=== PATIENT | female | born 1980 | race Caucasian/White ===

== ENCOUNTER 2017-07-28 19:04 | Emergency (ER) | payer OTHER ==
[~2017-07-28] VITALS: Ht 165.1 cm; Wt 57.2 kg
[2017-07-28 19:09] VITALS: TEMP 36.8; Ht 165.1 cm; Wt 57.2 kg
[2017-07-28] MEDS ORDERED: TOPI50TA16 PO (20:43)
[2017-07-28] MEDS ORDERED: CHOL1000 PO (20:43)
[2017-07-28] MEDS ORDERED: LACO100T PO ×2 (20:43)
[2017-07-28] MEDS ORDERED: MULT-513 PO (20:43)
[2017-07-28] MEDS ORDERED: LACO50TA PO (20:43)
[2017-07-28] MEDS ORDERED: TOPI100T20 PO ×2 (20:43)
--- NOTE | 2017-07-28 21:01 | EMERGENCY ROOM VISIT NOTE ---
ED Visit Note First contact with patient: 20:35 CHIEF COMPLAINT: Tick in the left arm HISTORY OF PRESENT ILLNESS: This 37-year-old female sent to the emergency department with concern for a tick bite. She states that she noticed a tick embedded in her left upper arm yesterday afternoon, she had a friend attempt to remove the tick, but states that the head of the tick is still lodged in her arm. Was able to remove some of it but not all. It has been on for about 24 hours. Tetanus is up-to-date. REVIEW OF SYSTEMS: Head: No headache, injury or neck pain. A Neck: No pain , stiffness, or swelling. Neurological: No headache, new changes in mental status, vertigo, focal weakness, numbness. Gastrointestinal: No abdominal pain , blood in stools, diarrhea, loss of appetite, nausea, or vomiting. General: No fever or chills, fatigue, loss of appetite, or significant recent weight gain or loss. PMH: The patient is healthy; there is no significant medical or surgical history. SOCIAL HISTORY: Patient lives at home. PHYSICAL EXAM: Vital Signs: Reviewed Nurse's notes. The patient is alert and oriented, in no acute distress. Pleasant and cooperative. The mouth parts of a tick are embedded in the left lateral upper arm. There is a small zone of inflammation around it. There is no fluctuance, tenderness, or drainage. EMERGENCY DEPARTMENT COURSE: Verbal consent was obtained from the patient to perform the procedure. After chlorhexidine scrub cleansing and using sterile technique, the tick parts were removed with forceps after a tiny incision with a number 15 scalpel blade. The area was again cleansed with chlorhexidine. Bacitracin and a band-aid were put on the wound. The patient tolerated the procedure well. I instructed her on signs/symptoms to monitor for, and encouraged her to follow up with her PCP, she verbalized understanding. Patient was discharged home in stable condition and ambulatory. Current/Historical Medications Scheduled Cholecalciferol (Vitamin D3), 1 TAB PO DAILY Lacosamide (Vimpat), 100 MG PO QAM Lacosamide (Vimpat), 50 MG PO BID Lacosamide (Vimpat), 200 MG PO QPM Multivitamins/Minerals (Mvi With Minerals), 1 TAB PO DAILY Topiramate (Topamax), 100 MG PO QAM Topiramate (Topamax), 50 MG PO BID Topiramate (Topamax), 200 MG PO QPM Allergies Coded Allergies: Gadobutrol (Verified Allergy, Severe, HEART PAIN, 07/28/17) Lamotrigine (Verified Allergy, Intermediate, RASH, 07/28/17) Uncoded Allergies: SULFA (Allergy, Intermediate, hives, 07/28/17) Vital Signs Date Time Temp Pulse Resp B/P (MAP) Pulse Ox O2 Delivery O2 Flow Rate FiO2 07/28/17 21:09 68 16 134/76 98 Room Air 07/28/17 19:09 36.8 71 16 114/79 98 Room Air Departure Information Impression Primary Impression: Tick bite Dispostion Home / Self-Care Condition GOOD Referrals Ruth Poole D.O. (PCP) Patient Instructions ED Bite Tick No Abx Tx, [facility] Additional Instructions Watch the area for signs of infection, like increasing pain, redness, swelling, pus drainage, or if you develop fevers/chills. Clean the area with warm soapy water, pat dry and apply antibiotic ointment and a Band-Aid for the next 2 days. Follow-up with her PCP as needed, or for any signs of infection. Problem Qualifiers Primary Impression: Tick bite Encounter type: initial encounter Qualified Codes: W57.XXXA - Bitten or stung by nonvenomous insect and other nonvenomous arthropods, initial encounter
[2017-07-28 21:09] VITALS: BP 134/76; PULSE 68; O2SAT 98
== END 2017-07-28 21:20 | disposition home or self-care (01) ==
LOC: C.EDB 19:06 → C.EDD 21:20
DX: S40.862A Insect bite (nonvenomous) of left upper arm, initial encounter (principal); W57.XXXA Bitten or stung by nonvenomous insect and other nonvenomous arthropods, initial encounter; Z79.899 Other long term (current) drug therapy; Z88.8 Allergy status to other drugs, medicaments and biological substances

== ENCOUNTER 2017-11-08 10:52 | Emergency (ER) | payer OTHER ==
[~2017-11-08] VITALS: Ht 175.3 cm; Wt 36.9 kg
[~2017-11-08 10:52] MED LIST: CHOL1000 PO; LACO100T PO; LACO50TA PO; MULT-513 PO; TOPI100T20 PO; TOPI50TA16 PO
[2017-11-08 11:03] VITALS: TEMP 36.9; Ht 175.3 cm; Wt 36.9 kg
[2017-11-08] MEDS ORDERED: LACO150T PO (11:18)
[2017-11-08] MEDS ORDERED: ATV/1 PO (11:18)
[2017-11-08] MEDS ORDERED: DROS3TAB PO (11:18)
[2017-11-08] MEDS ORDERED: ONFI PO ×2 (11:18)
[2017-11-08] MEDS ORDERED: CALC600T9 PO (11:18)
[2017-11-08] MEDS ORDERED: CHOL20009 PO (11:18)
[2017-11-08 12:50] VITALS: BP 103/66; PULSE 67; O2SAT 99
--- NOTE | 2017-11-08 13:06 | EMERGENCY ROOM VISIT NOTE ---
History First contact with patient: 11:42 Chief Complaint: SEIZURE Stated Complaint: SEIZURE Nursing Triage Summary: Pt presents from home via ALS for a seizure. Pt has long standing hx of seizures since she was 15, but verbalizes no one believed her until she was 29 years old when she finally started being medicated for them. Pt verbalizes she has seizures daily and is following with the [facility] for this. Takes Vipmat and Topamax daily, has not missed any doses. Pt verbalizes the reason she came to ED today is because this seizure was worse than any that she has had in a long time. Pt is alert and oriented upon arrival, no incontinence during seizure, only complaint is left arm pain, feeling cold, and has a headache, all which she verbalizes are normal post ictal. History of Present Illness The patient is a 37 year old female who presents to the Emergency Room via ALS with complaints of having a seizure. The patient states that she has a long- standing history of seizures. Over the past 6 months she has been getting seizures on a daily basis. She was living in [facility] and was treated by neurology there. She moved to the area 5 months ago. She went and saw [facility], Dr. Eliseo Olguin last week. He did adjust some of her medications. She has a follow-up appointment scheduled on November 25 for a video EEG were she will be admitted for one week. The patient states the only reason she came in today was that with her seizure she had at most a 5 minute time where she was paralyzed. The patient states normally she gets left arm paralysis after her seizures which is normal. She does have that today. She also gets a headache post ictal which she currently rates at a 1 out of 10. The patient was alone when she had a seizure but she called her and he stated she did not talk for 40 seconds and then she was able to talk and informed him of her paralysis. Seizure started at approximately 949. She states it only lasted a few minutes. The patient currently is just tired. She has been taking all her medicines and has not missed any dosing. Review of Systems 10 system review was performed and was negative unless stated otherwise history of present illness. Past Medical/Surgical History Seizures, tachycardia Social History Smoking Status: Never Smoker Alcohol Use: none Drug Use: none Marital Status: Housing Status: lives with family Current/Historical Medications Scheduled Calcium Carbonate-Vitamin D (Calcium + D), 1 TAB PO DAILY Cholecalciferol (Vitamin D), 2,000 UNITS PO DAILY Drospirenone-Ethinyl Estradiol (Ocella), 1 TAB PO DAILY Lacosamide (Vimpat), 50 MG PO BID Lacosamide (Vimpat), 300 MG PO BID Multivitamins/Minerals (Mvi With Minerals), 1 TAB PO DAILY Topiramate (Topamax), 100 MG PO QAM Topiramate (Topamax), 50 MG PO BID Topiramate (Topamax), 200 MG PO QPM [Onfi], 15 MG PO QAM [Onfi], 20 MG PO QPM Scheduled PRN Lorazepam (Ativan), 1-2 MG PO DAILY PRN for SEIZURES Physical Exam Vital Signs Date Time Temp Pulse Resp B/P (MAP) Pulse Ox O2 Delivery O2 Flow Rate FiO2 11/08/17 12:50 67 20 103/66 99 11/08/17 11:06 70 11/08/17 11:03 36.9 73 18 119/82 100 Room Air Physical Exam GENERAL: 37-year-old female appears in no acute distress. MENTAL Status: Alert and oriented 3. The patient appears fatigued. EYES: PERRLA. EOMs intact. EARS: Canals clear. TMs without fluid level noted. NECK: Supple, no lymphadenopathy noted. No carotid bruits noted. LUNGS: Clear auscultation without wheezes rales or rhonchi. CARDIAC: Regular rate and rhythm without murmur. Pulses is full and equal throughout. ABDOMEN: Positive bowel sounds all 4 quadrants. Soft, nontender to palpation without organomegaly or masses. NEURO:Cranial nerves two through 12 intact. Cerebellar function intact with [id number]. Fine motor intact with alternating finger motions. BILATERAL upper extremities. The patient's left upper extremity is weak with a muscle strength of 2 out of 5 as compared to 5 out of 5 on the right. Lower extremity strength is 5 out of 5 and symmetrical. Medical Decision & Procedures ECG Indication: other Rhythm: normal sinus Findings: no acute ischemic change ED Course The patient was evaluated. EKG had been ordered by protocol. This was reviewed by myself with normal sinus rhythm with no acute changes. I consulted [facility] about the patient to see if there was any diagnostic imaging or laboratory testing that would be warranted at this time due to her new symptom of paralysis. They informed me that no additional testing was necessary. She is to keep her scheduled follow-up appointment on November 25. The patient's case was discussed with Dr. Acevedo who agree with treatment plan. The patient was discharged home in stable condition. Medical Decision The patient has an ongoing history of seizures. She had a new finding of paralysis , therefore I contacted [facility] who is following her seizures to see if there was any additional testing which were warranted at this time and there was not therefore she was discharged home in stable condition with her . [place] Drug Monitoring Program Search Results: patient reviewed within database Medication Reconcilliation Current Medication List: was personally reviewed by me Blood Pressure Screening Patient's blood pressure: Normal blood pressure Impression Primary Impression: Seizure Departure Information Dispostion Home / Self-Care Condition GOOD Referrals Ruth Poole D.O. (PCP) Forms HOME CARE DOCUMENTATION FORM, IMPORTANT VISIT INFORMATION Patient Instructions ED Seizure Recurrent, [facility] Additional Instructions Continue all medications as prescribed. Go home and rest for the remainder of the day. Keep scheduled appointment with [facility] on November 25.
== END 2017-11-08 13:16 | disposition home or self-care (01) ==
LOC: EDBD 10:52 → C.EDC 10:53
DX: R56.9 Unspecified convulsions (principal); R00.0 Tachycardia, unspecified